=== PATIENT | female | born 1940 | race African-American/Black ===

== ENCOUNTER 2021-03-21 13:06 | Emergency (ER) | payer OTHER, MEDICAID ==
[~2021-03-21] VITALS: Ht 170.2 cm; Wt 87.0 kg
[2021-03-21 14:09] LABS: BASOPHILS % 0.6 % (0.0-2.0); EOSINOPHILS % 1.4 % (0.0-5.0); HEMATOCRIT. 32.5 % (36.0-48.0); HEMOGLOBIN. 10.9 g/dL (12.0-16.0); LYMPHOCYTES % 15.9 % (20.0-50.0); MEAN CORPUSCULAR HEMOGLOBIN 34.9 pg (28.0-32.0); MEAN CORPUSCULAR VOLUME 104.2 fL (81.0-99.0); MEAN PLATELET VOLUME 7.6 fl (7.4-10.4); MONOCYTES % 11.6 % (2.0-8.0); NEUTROPHILS % 70.5 % (40.0-76.0); PLATELET 179 x1000/uL (130-400); RED BLOOD CELL COUNT 3.12 mill/uL (4.2-5.4); RED CELL DISTRIBUTION WIDTH 14.1 % (11.6-14.6)
[2021-03-21 14:13] LABS: CHLORIDE 103 mEq/L (98-107)
[2021-03-21 14:17] LABS: ETHANOL BLOOD < 10 mg/dL
[2021-03-21 14:29] LABS: INR 1.1; PROTHROMBIN TIME 11.3 sec (9.6-11.0)
[2021-03-21 15:05] VITALS: BP 121/62
[2021-03-21] MEDS ORDERED: ACETAMINOPHEN 325MG TABLET PO ONE (15:15)
[2021-03-21 15:27] LABS: CLARITY URINE CLEAR (CLEAR); COLOR URINE YELLOW (YELLOW); KETONES URINE NEGATIVE (NEGATIVE); LEUKOCYTE ESTERASE URINE NEGATIVE (NEGATIVE); NITRITE URINE NEGATIVE (NEGATIVE); OCCULT BLOOD URINE NEGATIVE (NEGATIVE); PH URINE 6.5 (4.5-8.0); PROTEIN URINE NEGATIVE (NEGATIVE); SPECIFIC GRAVITY URINE 1.009 (1.005-1.030)
[2021-03-21 15:36] LABS: *AMPHETAMINES SCREEN URINE NEGATIVE (NEGATIVE); *BARBITURATES SCREEN URINE NEGATIVE (NEGATIVE); *BENZODIAZEPINES SCREEN URINE NEGATIVE (NEGATIVE); *COCAINE SCREEN URINE NEGATIVE (NEGATIVE)
[2021-03-21 15:37] LABS: CANNABINOID URINE SCREEN NEGATIVE (NEGATIVE); METHADONE URINE SCREEN NEGATIVE (NEGATIVE); OPIATES URINE SCREEN NEGATIVE (NEGATIVE); PHENCYCLIDINE URINE SCREEN NEGATIVE (NEGATIVE)
== END 2021-03-21 16:32 | disposition short-term general hospital (02) ==
LOC: EDSEX 13:06 → ER 13:06
DX: R51.9 Headache, unspecified (principal); D64.9 Anemia, unspecified; Z86.73 Personal history of transient ischemic attack (TIA), and cerebral infarction without residual deficits
CPT/HCPCS: 36415; 71045; 80053; 80305; 80320; 81003; 82962; 85025; 93005; 99285; G0480

== ENCOUNTER 2023-09-11 18:51 | Emergency (ER) | payer OTHER, MEDICAID ==
[~2023-09-11] VITALS: Ht 167.6 cm; Wt 83.0 kg
[2023-09-11 18:58] VITALS: O2SAT 97
[2023-09-11 20:40] LABS: BASOPHILS % 0.9 % (0.0-2.0); DIFFERENTIAL COMMENT 0; EOSINOPHILS % 1.8 % (0.0-5.0); HEMATOCRIT. 35.5 % (36.0-48.0); HEMOGLOBIN. 11.2 g/dL (12.0-16.0); LYMPHOCYTES % 19.5 % (20.0-50.0); MEAN CORPUSCULAR HEMOGLOBIN 32.1 pg (28.0-32.0); MEAN CORPUSCULAR HGB CONC 31.6 g/dL (31.0-37.0); MEAN CORPUSCULAR VOLUME 101.6 fL (81.0-99.0); MEAN PLATELET VOLUME 8.6 fl (7.4-10.4); MONOCYTES % 9.1 % (2.0-8.0); NEUTROPHILS % 68.7 % (40.0-76.0); PLATELET 174 x1000/uL (130-400); RED BLOOD CELL COUNT 3.49 mill/uL (4.2-5.4); RED CELL DISTRIBUTION WIDTH 15.3 % (11.6-14.6); WHITE BLOOD COUNT 13.1 x1000/uL (4.5-11.0)
[2023-09-11 20:51] LABS: ALANINE AMINOTRANSFERASE 17 IU/L (10-49); ALBUMIN 3.9 g/dL (3.2-4.8); ASPARTATE AMINOTRANSFERASE 20 IU/L (<34); BILIRUBIN TOTAL 0.4 mg/dL (0.1-1.0); CALCIUM 9.2 mg/dL (8.7-10.4); CARBON DIOXIDE 33 mEq/L (21-32); CHLORIDE 101 mEq/L (98-107); GLUCOSE 149 mg/dL (70-105); POTASSIUM 3.5 mEq/L (3.5-5.1); PROTEIN TOTAL 6.1 g/dL (6.0-8.3); SODIUM 140 mEq/L (136-145); TROPONIN I HIGH SENSITIVITY 10 ng/L (3.0-34); UREA NITROGEN BLOOD 11 mg/dL (9-23)
[2023-09-12 02:34] VITALS: BP 128/71; PULSE 94; RESP 18; TEMP 98
== END 2023-09-12 02:58 | disposition short-term general hospital (02) ==
LOC: ER 18:51 → EDBEDREQ 19:28 → ER 09-12 02:58 → CANBEDREQ 09-13 16:42
DX: R55 Syncope and collapse (principal); I11.0 Hypertensive heart disease with heart failure; I50.9 Heart failure, unspecified; Z86.73 Personal history of transient ischemic attack (TIA), and cerebral infarction without residual deficits; E11.9 Type 2 diabetes mellitus without complications
CPT/HCPCS: 36415; 71045; 80053; 84484; 85025; 93005; 99285

== ENCOUNTER 2024-08-26 11:13 | Emergency (ER) | payer OTHER, MEDICAID ==
[~2024-08-26] VITALS: Ht 157.5 cm; Wt 100.0 kg
[2024-08-26 11:14] VITALS: O2SAT 98
[2024-08-26] MEDS: CEFTRIAXONE 2GM/50ML 50 ML IV ONE (12:11)
[2024-08-26] MEDS: SODIUM CHLORIDE 0.9% (SEPSIS BOLUS) IV ONE (12:11)
[2024-08-26 12:34] LABS: BASOPHILS % 0.4 % (0.0-2.0); DIFFERENTIAL COMMENT 0; EOSINOPHILS % 1.6 % (0.0-5.0); HEMATOCRIT. 31.8 % (36.0-48.0); HEMOGLOBIN. 10.3 g/dL (12.0-16.0); LYMPHOCYTES % 18.3 % (20.0-50.0); MEAN CORPUSCULAR HEMOGLOBIN 32.8 pg (28.0-32.0); MEAN CORPUSCULAR HGB CONC 32.3 g/dL (31.0-37.0); MEAN CORPUSCULAR VOLUME 101.5 fL (81.0-99.0); MEAN PLATELET VOLUME 8.9 fl (7.4-10.4); MONOCYTES % 8.9 % (2.0-8.0); NEUTROPHILS % 70.8 % (40.0-76.0); PLATELET 164 x1000/uL (130-400); RED BLOOD CELL COUNT 3.13 mill/uL (4.2-5.4); RED CELL DISTRIBUTION WIDTH 16.1 % (11.6-14.6); WHITE BLOOD COUNT 13.1 x1000/uL (4.5-11.0)
[2024-08-26 12:48] LABS: PROTHROMBIN TIME 11.1 sec (9.6-11.0)
[2024-08-26 13:00] LABS: CHLORIDE 105 mEq/L (98-107); POTASSIUM 3.4 mEq/L (3.5-5.1); SODIUM 144 mEq/L (136-145)
[2024-08-26 13:01] LABS: CALCIUM 9.4 mg/dL (8.7-10.4); CARBON DIOXIDE 30 mEq/L (21-32)
[2024-08-26 13:06] LABS: CREATININE 1.2 mg/dL (0.6-1.0); GLUCOSE 173 mg/dL (70-105); UREA NITROGEN BLOOD 20 mg/dL (9-23)
[2024-08-26 13:07] LABS: TROPONIN I HIGH SENSITIVITY 26 ng/L (3.0-34)
[2024-08-26 13:08] LABS: ALANINE AMINOTRANSFERASE 17 IU/L (10-49); ALBUMIN 3.8 g/dL (3.2-4.8); ASPARTATE AMINOTRANSFERASE 16 IU/L (<34); BILIRUBIN DIRECT 0.1 mg/dL (<=3.0)
[2024-08-26 13:09] LABS: BILIRUBIN TOTAL 0.5 mg/dL (0.1-1.0); PROTEIN TOTAL 6.2 g/dL (6.0-8.3)
[2024-08-26] MEDS ORDERED: AZITHROMYCIN 500MG/250ML 250 ML IV STA (14:05)
[2024-08-26] MEDS: AZITHROMYCIN 500MG/250ML 250 ML IV NR (14:43)
[2024-08-26 16:30] VITALS: BP 127/50; PULSE 79; RESP 16; TEMP 36.89184; O2SAT 98
== END 2024-08-26 16:33 | disposition short-term general hospital (02) ==
LOC: ER 11:17
DX: R53.1 Weakness (principal); I95.9 Hypotension, unspecified; E11.9 Type 2 diabetes mellitus without complications; I11.0 Hypertensive heart disease with heart failure; I50.9 Heart failure, unspecified; Z86.73 Personal history of transient ischemic attack (TIA), and cerebral infarction without residual deficits; Z88.5 Allergy status to narcotic agent
CPT/HCPCS: 99291; 96365; 96361; 96375; 80076; 80048; 83880; 83605; 85025; 85610; 87040; 84484; 36415; 84145; 71045; 93005; J0456; J0696; J7030

== ENCOUNTER 2025-06-02 11:27 | Inpatient (IN) | payer OTHER, MEDICAID ==
[~2025-06-02] VITALS: Ht 162.6 cm; Wt 93.4 kg
[2025-06-02 11:30] VITALS: O2SAT 99
[2025-06-02 12:15] LABS: BASOPHILS % 0.5 % (0.0-2.0); EOSINOPHILS % 2.5 % (0.0-5.0); HEMATOCRIT. 34.1 % (36.0-48.0); HEMOGLOBIN. 11.0 g/dL (12.0-16.0); LYMPHOCYTES % 15.1 % (20.0-50.0); MEAN PLATELET VOLUME 9.0 fl (7.4-10.4); MONOCYTES % 7.0 % (2.0-8.0); NEUTROPHILS % 74.9 % (40.0-76.0); PLATELET 164 x1000/uL (130-400); RED BLOOD CELL COUNT 3.40 mill/uL (4.2-5.4); RED CELL DISTRIBUTION WIDTH 15.5 % (11.6-14.6)
[2025-06-02 12:28] LABS: INR 1.1
[2025-06-02 12:31] LABS: CREATININE 1.1 mg/dL (0.6-1.0); UREA NITROGEN BLOOD 14 mg/dL (9-23)
[2025-06-02 12:32] LABS: TROPONIN I HIGH SENSITIVITY 26 ng/L (3.0-34)
[2025-06-02 12:33] LABS: ASPARTATE AMINOTRANSFERASE 19 IU/L (<34); BILIRUBIN DIRECT 0.2 mg/dL (<=3.0)
[2025-06-02 12:34] LABS: BILIRUBIN TOTAL 0.6 mg/dL (0.1-1.0); PROTEIN TOTAL 6.8 g/dL (6.0-8.3)
[2025-06-02 12:37] LABS: TROPONIN I HIGH SENSITIVITY 26 ng/L (3.0-34)
[2025-06-02] MEDS: CEFTRIAXONE 1GM/50ML 50 ML IV STA (13:08)
[2025-06-02] MEDS ORDERED: GUAIFENESIN 200MG/10ML SUGAR FREE UDC PO PRN (13:15)
[2025-06-02] MEDS ORDERED: ACETAMINOPHEN 325MG TABLET PO PRN ×2 (13:15)
[2025-06-02] MEDS ORDERED: MAGNESIUM/ALUMINUM HYDROXIDE/SIMETHICONE 30ML UDC PO PRN (13:15)
[2025-06-02] MEDS ORDERED: CLONIDINE 0.1MG TABLET PO PRN (13:15)
[2025-06-02] MEDS ORDERED: IPRATROPIUM/ALBUTEROL 0.5-3(2.5)MG/3ML NEB HHN PRN (13:15)
[2025-06-02] MEDS: ENOXAPARIN 40MG/0.4ML SYR SUBCUT SCH (14:00)
[2025-06-02] MEDS: FUROSEMIDE 40MG/4ML VIAL IVP ONE (14:13)
[2025-06-02] MEDS: AZITHROMYCIN 500MG/250ML 250 ML IV STA (14:13)
[2025-06-02] MEDS ORDERED: AZITHROMYCIN 250 MG in DEXT 5% WATER 250 ML IV SCH (14:15)
[2025-06-02] MEDS ORDERED: APIX2.5T MT (14:58)
[2025-06-02] MEDS: FUROSEMIDE 20MG/2ML VIAL IVP SCH (15:05)
[2025-06-02] MEDS ORDERED: IPRATROPIUM/ALBUTEROL 0.5-3(2.5)MG/3ML NEB HHN SCH (16:00)
[2025-06-02 16:57] LABS: TROPONIN I HIGH SENSITIVITY 21 ng/L (3.0-34)
[2025-06-02 17:30] VITALS: BP 123/53; PULSE 79; RESP 18; TEMP 36.5; O2SAT 97
[2025-06-02] MEDS ORDERED: PRED10TA23 PO (18:17)
[2025-06-02] MEDS ORDERED: ATOR40TA70 MT (18:17)
[2025-06-02] MEDS ORDERED: VENL37.586 MT (18:17)
[2025-06-02] MEDS ORDERED: ASCO-339 MT (18:17)
[2025-06-02] MEDS ORDERED: POLY17PO3 MT (18:17)
[2025-06-02] MEDS ORDERED: ZINC100T8 PO (18:17)
[2025-06-02] MEDS ORDERED: POTA-202 MT (18:17)
[2025-06-02] MEDS ORDERED: GABA-1180 MT (18:17)
[2025-06-02] MEDS ORDERED: MELA10TA20 MT (18:17)
[2025-06-02] MEDS ORDERED: QUET50TA23 PO (18:17)
[2025-06-02] MEDS ORDERED: FURO-151 PO (18:19)
[2025-06-02] MEDS ORDERED: MIRT-89 PO (18:19)
[2025-06-02] MEDS ORDERED: BUDE10.32 (18:19)
[2025-06-02] MEDS ORDERED: SENN-362 PO (18:19)
[2025-06-02 18:34] VITALS: BP 123/53; PULSE 79; RESP 18; TEMP 36.5292
[2025-06-02 20:00] VITALS: BP 105/52; PULSE 86; RESP 18; TEMP 36.8; O2SAT 100
[2025-06-02] MEDS: MELATONIN 3MG TABLET PO SCH (21:49)
[2025-06-02] MEDS: APIXABAN 5 MG TABLET PO SCH (21:50)
[2025-06-02] MEDS: MIRTAZAPINE 15MG TABLET PO SCH (21:50)
[2025-06-02] MEDS: GUAIFENESIN 600MG ER TABLET PO SCH (21:50)
[2025-06-03] VITALS: BP 114/71; PULSE 84; RESP 18; TEMP 37; O2SAT 100
[2025-06-03 04:00] VITALS: BP 119/61; PULSE 86; RESP 18; TEMP 36.8; O2SAT 100
[2025-06-03 08:00] VITALS: BP 115/56; PULSE 86; RESP 18; TEMP 36.7; O2SAT 97
[2025-06-03 09:02] LABS: BASOPHILS % 0.3 % (0.0-2.0); EOSINOPHILS % 2.0 % (0.0-5.0); HEMATOCRIT. 32.9 % (36.0-48.0); HEMOGLOBIN. 10.6 g/dL (12.0-16.0); LYMPHOCYTES % 18.7 % (20.0-50.0); MEAN PLATELET VOLUME 9.2 fl (7.4-10.4); MONOCYTES % 9.4 % (2.0-8.0); NEUTROPHILS % 69.6 % (40.0-76.0); PLATELET 151 x1000/uL (130-400); RED BLOOD CELL COUNT 3.27 mill/uL (4.2-5.4); RED CELL DISTRIBUTION WIDTH 15.5 % (11.6-14.6)
[2025-06-03 09:37] LABS: CREATININE 1.1 mg/dL (0.6-1.0); LDL CHOLESTEROL 56 mg/dL (5-100); TRIGLYCERIDE 141 mg/dL (0-150); UREA NITROGEN BLOOD 16 mg/dL (9-23)
[2025-06-03] MEDS: AZITHROMYCIN 500MG/250ML 250 ML IV SCH (09:51)
[2025-06-03] MEDS: FUROSEMIDE 40MG/4ML VIAL IVP SCH (09:52)
[2025-06-03] MEDS ORDERED: CEFTRIAXONE 1GM/50ML 50 ML IV SCH (13:00)
[2025-06-03] MEDS: CEFTRIAXONE 1GM/50ML 50 ML IV SCH (13:37)
[2025-06-03 16:00] VITALS: BP 118/66; PULSE 84; RESP 18; TEMP 36.6; O2SAT 98
[2025-06-03] MEDS: SENNOSIDES 8.6MG TABLET PO SCH (16:59)
[2025-06-03] MEDS: POLYETHYLENE GLYCOL 3350 (17GM) 1 DOSE PACK PO SCH (17:00)
[2025-06-03 18:40] VITALS: BP 102/64; PULSE 93; RESP 18; TEMP 98.2
[2025-06-03] MEDS ORDERED: GABAPENTIN 300MG CAPSULE PO SCH (21:00)
[2025-06-03] MEDS ORDERED: METOPROLOL TARTRATE 25MG TABLET PO SCH (21:00)
[2025-06-03] MEDS ORDERED: ATORVASTATIN CALCIUM 40MG TABLET PO SCH (21:00)
[2025-06-03] MEDS ORDERED: MIRTAZAPINE 15MG TABLET PO SCH (21:00)
[2025-06-04] MEDS ORDERED: QUETIAPINE FUMARATE 50MG TABLET PO SCH (09:00)
== END 2025-06-03 20:00 | disposition short-term general hospital (02) | DRG 189 ==
LOC: ER 11:39 → 7WST 13:09 → EDBEDREQTM 13:25 → EDBEDREQ 13:25
PROVIDERS: ADMIT Family Medicine Adult Medicine; ATTEND Family Medicine Adult Medicine
DX: J96.21 Acute and chronic respiratory failure with hypoxia (principal); J18.9 Pneumonia, unspecified organism; J84.10 Pulmonary fibrosis, unspecified; I11.0 Hypertensive heart disease with heart failure; I50.9 Heart failure, unspecified; E11.9 Type 2 diabetes mellitus without complications; D53.9 Nutritional anemia, unspecified; E66.9 Obesity, unspecified; E78.00 Pure hypercholesterolemia, unspecified; G47.33 Obstructive sleep apnea (adult) (pediatric); Z68.35 Body mass index [BMI] 35.0-35.9, adult; Z79.01 Long term (current) use of anticoagulants; Z79.899 Other long term (current) drug therapy; Z86.711 Personal history of pulmonary embolism; Z86.718 Personal history of other venous thrombosis and embolism; Z86.73 Personal history of transient ischemic attack (TIA), and cerebral infarction without residual deficits; Z87.01 Personal history of pneumonia (recurrent); Z87.891 Personal history of nicotine dependence; Z88.5 Allergy status to narcotic agent; Z99.81 Dependence on supplemental oxygen
CPT/HCPCS: 36415; 71045; 80048; 80061; 80076; 82962; 83735; 83880; 84145; 84443; 84484; 85025; 93005; 93306; 93970; 99285; J0456; J0696; J1938

== ENCOUNTER 2025-07-29 16:40 | Emergency (ER) | payer OTHER, MEDICAID ==
[~2025-07-29] VITALS: Ht 167.6 cm; Wt 80.0 kg
[~2025-07-29 16:40] MED LIST: APIX2.5T MT; ASCO-339 MT; ATOR40TA70 MT; BUDE10.32; FURO-151 PO; GABA-1180 MT; MELA10TA20 MT; MIRT-89 PO; POLY17PO3 MT; POTA-202 MT; PRED10TA23 PO; QUET50TA23 PO; SENN-362 PO; VENL37.586 MT; ZINC100T8 PO
[2025-07-29 16:43] VITALS: O2SAT 100
[2025-07-29 18:05] LABS: BASOPHILS % 0.1 % (0.0-2.0); EOSINOPHILS % 0.2 % (0.0-5.0); HEMATOCRIT. 31.8 % (36.0-48.0); HEMOGLOBIN. 10.3 g/dL (12.0-16.0); LYMPHOCYTES % 11.0 % (20.0-50.0); MEAN PLATELET VOLUME 8.8 fl (7.4-10.4); MONOCYTES % 6.6 % (2.0-8.0); NEUTROPHILS % 82.1 % (40.0-76.0); PLATELET 132 x1000/uL (130-400); RED BLOOD CELL COUNT 3.18 mill/uL (4.2-5.4); RED CELL DISTRIBUTION WIDTH 15.5 % (11.6-14.6)
[2025-07-29] MEDS: FUROSEMIDE 40MG/4ML VIAL IV ONE (18:06)
[2025-07-29 18:19] LABS: CREATININE 1.1 mg/dL (0.6-1.0)
[2025-07-29 18:20] LABS: TROPONIN I HIGH SENSITIVITY 18 ng/L (3.0-34); UREA NITROGEN BLOOD 12 mg/dL (9-23)
[2025-07-29 18:21] LABS: ASPARTATE AMINOTRANSFERASE 27 IU/L (<34); PROTEIN TOTAL 6.2 g/dL (6.0-8.3)
[2025-07-29 18:22] LABS: BILIRUBIN DIRECT < 0.1 mg/dL (<=3.0); BILIRUBIN TOTAL 0.3 mg/dL (0.1-1.0)
[2025-07-30 03:50] VITALS: BP 130/61; PULSE 87; RESP 28; TEMP 36.7; O2SAT 96
== END 2025-07-30 04:00 | disposition short-term general hospital (02) ==
LOC: ER 16:40 → EDBEDREQ 22:36 → EDBEDREQTM 22:36 → ER 07-30 04:00 → CMPBEDREQ 07-30 05:22
DX: I50.9 Heart failure, unspecified (principal); I11.0 Hypertensive heart disease with heart failure; R19.7 Diarrhea, unspecified; E11.9 Type 2 diabetes mellitus without complications; E78.00 Pure hypercholesterolemia, unspecified; Z79.899 Other long term (current) drug therapy; Z86.73 Personal history of transient ischemic attack (TIA), and cerebral infarction without residual deficits; Z88.5 Allergy status to narcotic agent
CPT/HCPCS: 99285; 74176; 96374; 71045; 80076; 80048; 83880; 83690; 83735; 85025; 84484; 36415; 93005; J1938; A4606